=== PATIENT | female | born 1940 | race Caucasian/White ===

== ENCOUNTER 2022-11-30 11:30 | Emergency (ER) | payer MEDICARE, SELFPAY ==
--- NOTE | ~2022-11-30 | XR_ITS ---
XR wrist LT min 3V 11/30/2022 12:41 Indication: Left wrist pain after fall Procedure: 4 views left wrist Comparison: No prior studies for comparison. Findings: There is a radial styloid avulsion fracture. There is polyarticular osteoarthritis of the l eft wrist and hand. Osteopenia. No significant soft tissue abnormality. No foreign bodies. Impression: 1: Radial styloid avulsion fracture. 2: Moderate-severe polyarticular osteoarthritis. Reviewed, dictated and finalized at location A. Impression: 1: Radial styloid avulsion fracture. 2: Moderate-severe polyarticular osteoarthritis.
--- NOTE | ~2022-11-30 | XR_ITS ---
[[id number] ] INDICATION: Left rib pain after fall TECHNIQUE: Frontal projection of the upper left ribs, frontal projection of the lower left ribs, obli que projection of all the left ribs, frontal inspiratory chest x-ray for interpretation. FINDINGS: There are acute left sixth and seventh rib fractures. There are no soft tissue abnormality seen. The lungs are clear. Status post median sternotomy for CABG. Cardiomegaly. IMPRESSION: 1: Acute left sixth and seventh rib fractures. Reviewed, dictated and finalized at location A.
--- NOTE | 2022-11-30 11:52 | ED.FALL ---
HPI - Fall General Chief Complaint: Fall Stated Complaint: fall, left side pain History of Present Illness HPI Narrative: PATIENT PRESENTS FOR EVALUATION OF A FALL PATIENT FELL EARLIER TODAY AND LANDED ON LEFT SIDE RESENTS WITH LEFT SIDED RIB PAIN. PATIENT STATES THEY ARE REMODELING THE FLOORS IN HER HOUSE AND TRIPPED OVER AN OBSTACLE IN HER WAY CAUSING HER TO LAND ON HER LEFT SIDE. PATIENT DENIES ANY HEAD INJURY DENIES ANY LOSS OF CONSCIOUSNESS. PATIENT HAS LEFT RIBS AND LEFT WRIST PAIN Related Data Home Medications Medication Instructions Recorded Confirmed apixaban 5 mg tablet (Eliquis) mg 11/30/22 diltiazem HCl 300 mg mg PO 11/30/22 capsule,extended release 24 hr furosemide 40 mg tablet mg 11/30/22 metoprolol succinate 100 mg mg PO 11/30/22 tablet,extended release 24 hr pravastatin 40 mg tablet mg 11/30/22 Allergies Allergy/AdvReac Type Severity Reaction Status Date / Time codeine Allergy Unknown Nausea Verified 08/17/14 15:33 Penicillins Allergy Unknown Rash Verified 08/17/14 15:33 Review of Systems Review of Systems: CONSTITUTIONAL: DENIES FEVER, CHILLS, OR SWEATS. EYES: DENIES VISUAL CHANGES, REDNESS, OR DISCHARGE. ENT: DENIES RHINORRHEA, CONGESTION, SORE THROAT, OR OTALGIA. CARDIOVASCULAR: DENIES CHEST PAIN, PALPITATIONS, OR EDEMA. RESPIRATORY: DENIES COUGH OR DYSPNEA. GASTROINTESTINAL: DENIES ABDOMINAL PAIN, NAUSEA, VOMITING, OR DIARRHEA. GENITOURINARY: DENIES DYSURIA OR HEMATURIA. SKIN: DENIES RASH OR ITCHING. MUSCULOSKELETAL: DENIES BACK PAIN, JOINT PAIN, OR MYALGIA. NEUROLOGIC: DENIES HEADACHE, NUMBNESS, OR WEAKNESS. PSYCHIATRIC: DENIES ANXIETY OR DEPRESSION. PMFSH Comments AT TIME OF SIGNATURE, AGREE WITH NURSING PAST MEDICAL, SURGICAL, SOCIAL AND FAMILY HISTORY. THERE IS NO RELEVANT FAMILY HISTORY PERTINENT TO THE PRESENTING COMPLAINT Exam Narrative: GENERAL: WELL-APPEARING, WELL-NOURISHED, AND IN NO ACUTE DISTRESS. HEAD: NORMOCEPHALIC, ATRAUMATIC. EYES: PERRLA AND EOMI. ENT: NARES CLEAR, NO RHINORRHEA OR EPISTAXIS. MUCOUS MEMBRANES MOIST. NECK: SUPPLE. CHEST: CLEAR TO AUSCULTATION. NO RESPIRATORY DISTRESS. ALL PAIN REPRODUCIBLE. RIB TENDER. NO CREPITUS OR SQ EMPHYSEMA OR DEFORMITY OR STEP OFFS. NO ECCHYMOSIS OR LESIONS. HEART: REGULAR RATE AND RHYTHM. NO MURMUR HEARD. NORMAL PERIPHERAL PULSES. ABDOMEN: SOFT, NONTENDER, NONDISTENDED, NORMAL ACTIVE BOWEL SOUNDS. EXTREMITIES: NORMAL RANGE OF MOTION. NO EDEMA. HAND EXAM - SKIN INTACT, NO LACERATION, NO SWELLING, NO ERYTHEMA, NORMAL DIGIT CASCADE WITH FLEXION OF FINGERS, MEDIAN NERVE, ULNAR NERVE, RADIAL NERVE IS INTACT. NORMAL SENSATION OF EACH SIDE OF EACH FINGER, CAN PERFORM `OK? SIGN, `CROSS OVER FINGER TEST OF INDEX AND MIDDLE FINGERS? AND `THUMBS UP? SIGN, NORMAL THUMB OPPOSITION, NO SCISSORING. GOOD CAPILLARY REFILL AND RADIAL PULSE. NORMAL FLEXION AND EXTENSION OF FINGERS AND WRIST. NORMAL SUPINATION AT WRIST. NORMAL FOREARM AND ELBOW EXAM. SKIN: WARM, DRY, NO RASH. PAIN TO LEFT WRIST NEURO: NO FOCAL DEFICITS. ALERT AND ORIENTED X3. AJAY COMA SCALE EYE OPENING: SPONTANEOUS 4 AJAY COMA SCALE MOTOR: OBEYS COMMANDS 6 AJAY COMA SCALE VERBAL: ORIENTED 5 AJAY COMA SCALE TOTAL 15 Course Course Emergency Course: DISCUSSED WITH PATIENT, X-RAY FINDINGS AND THAT X-RAYS WERE NEGATIVE FOR FRACTURE OR DISLOCATIONS. X-RAYS CANNOT RULE OUT TENDON, LIGAMENT, OR SOFT TISSUE STRUCTURE INJURIES AND IF SYMPTOMS PERSIST OR WORSEN, FURTHER EVALUATION MAY BE WARRANTED FOR POTENTIAL IMAGING. ADVISED REST, ICE, COMPRESSION, AND ELEVATION. IF PRESCRIBED ANY MEDICATIONS, TAKE DIRECTED. IF PRESCRIBED MUSCLE RELAXERS, DO NOT DRINK ALCOHOL, DRIVE, OR OPERATE ANY HEAVY MACHINERY WHILE TAKING. INSTRUCTED ON WHEN TO F/U WITH PCP AND CRITICAL RED FLAGS S/S DISCUSSED TO WHEN TO RETURN TO THE [facility] OR GO TO THE EMERGENCY DEPARTMENT. PATIENT/FAMILY UNDERSTAND IMPORTANCE OF CLOSE OBSERVATION AND RETURNING OR GOING TO THE EMERGENCY RO
[2022-11-30 12:03] VITALS: BP 105/43; PULSE 58; RESP 16; TEMP 36.4; O2SAT 100
--- NOTE | 2022-11-30 13:08 | PC.NURSE ---
Incentive spirometer given and instructed for use.
== END 2022-11-30 13:37 | disposition home or self-care (01) ==
PROVIDERS: Emergency Provider Nurse Practitioner Family; PCP Family Medicine
DX: S22.42XA Multiple fractures of ribs, left side, initial encounter for closed fracture (principal); S52.512A Displaced fracture of left radial styloid process, initial encounter for closed fracture; W18.09XA Striking against other object with subsequent fall, initial encounter
CPT/HCPCS: 29125; 71101; 73110; 99214; A4565; G0463